=== PATIENT | female | born 1960 | race Caucasian/White ===

== ENCOUNTER → 2020-10-30 | Outpatient (CLI) | payer OTHER | LOC: WCC 08:30 | DX: S82.862D Displaced Maisonneuve's fracture of left leg, subsequent encounter for closed fracture with routine healing (principal); L03.115 Cellulitis of right lower limb; L98.8 Other specified disorders of the skin and subcutaneous tissue; I10 Essential (primary) hypertension ==

== ENCOUNTER → 2020-11-14 | Outpatient (CLI) | payer OTHER | LOC: WCC 08:09 | PROC: 0JBP0ZZ Excision of Left Lower Leg Subcutaneous Tissue and Fascia, Open Approach (ICD-10-PCS; principal; 2020-11-14) | PROC: 0JBN0ZZ Excision of Right Lower Leg Subcutaneous Tissue and Fascia, Open Approach (ICD-10-PCS; 2020-11-14) | DX: L03.115 Cellulitis of right lower limb (principal); S80.862D Insect bite (nonvenomous), left lower leg, subsequent encounter; L98.8 Other specified disorders of the skin and subcutaneous tissue; I10 Essential (primary) hypertension; Z88.5 Allergy status to narcotic agent; Z79.899 Other long term (current) drug therapy; X58.XXXD Exposure to other specified factors, subsequent encounter | CPT/HCPCS: 87070; 87205 ==

== ENCOUNTER → 2020-11-20 | Outpatient (CLI) | payer OTHER | LOC: WCC 08:00 | PROC: 0JBP0ZZ Excision of Left Lower Leg Subcutaneous Tissue and Fascia, Open Approach (ICD-10-PCS; principal; 2020-11-20) | DX: S81.852A Open bite, left lower leg, initial encounter (principal); S81.851A Open bite, right lower leg, initial encounter; L03.115 Cellulitis of right lower limb; L03.116 Cellulitis of left lower limb; I96 Gangrene, not elsewhere classified; I10 Essential (primary) hypertension; L02.91 Cutaneous abscess, unspecified; I49.9 Cardiac arrhythmia, unspecified; M10.9 Gout, unspecified; Z79.2 Long term (current) use of antibiotics; Z79.899 Other long term (current) drug therapy; Z88.5 Allergy status to narcotic agent; W57.XXXA Bitten or stung by nonvenomous insect and other nonvenomous arthropods, initial encounter; Y92.89 Other specified places as the place of occurrence of the external cause | CPT/HCPCS: J0696 ==

== ENCOUNTER → 2020-11-27 | Outpatient (CLI) | payer OTHER | LOC: WCC 08:05 | PROC: 0KBT0ZZ Excision of Left Lower Leg Muscle, Open Approach (ICD-10-PCS; principal; 2020-11-27) | PROC: 0KBS0ZZ Excision of Right Lower Leg Muscle, Open Approach (ICD-10-PCS; 2020-11-27) | DX: S81.852A Open bite, left lower leg, initial encounter (principal); S81.851A Open bite, right lower leg, initial encounter; L03.116 Cellulitis of left lower limb; L03.115 Cellulitis of right lower limb; I96 Gangrene, not elsewhere classified; L02.416 Cutaneous abscess of left lower limb; I10 Essential (primary) hypertension; I49.9 Cardiac arrhythmia, unspecified; M10.9 Gout, unspecified; I83.012 Varicose veins of right lower extremity with ulcer of calf; I83.022 Varicose veins of left lower extremity with ulcer of calf; L97.219 Non-pressure chronic ulcer of right calf with unspecified severity; L97.229 Non-pressure chronic ulcer of left calf with unspecified severity; Z88.5 Allergy status to narcotic agent; Z79.2 Long term (current) use of antibiotics; Z79.899 Other long term (current) drug therapy; Z68.34 Body mass index [BMI] 34.0-34.9, adult; W57.XXXA Bitten or stung by nonvenomous insect and other nonvenomous arthropods, initial encounter | CPT/HCPCS: 87070; J0696 ==

== ENCOUNTER → 2020-12-04 | Outpatient (CLI) | payer OTHER | LOC: WCC 08:00 | PROC: 0KBT0ZZ Excision of Left Lower Leg Muscle, Open Approach (ICD-10-PCS; principal; 2020-12-04) | PROC: 0KBS0ZZ Excision of Right Lower Leg Muscle, Open Approach (ICD-10-PCS; 2020-12-04) | DX: S81.852A Open bite, left lower leg, initial encounter (principal); S81.851A Open bite, right lower leg, initial encounter; L03.115 Cellulitis of right lower limb; L03.116 Cellulitis of left lower limb; L02.91 Cutaneous abscess, unspecified; I96 Gangrene, not elsewhere classified; I10 Essential (primary) hypertension; I49.9 Cardiac arrhythmia, unspecified; M10.9 Gout, unspecified; Z79.2 Long term (current) use of antibiotics; Z79.899 Other long term (current) drug therapy; Z88.5 Allergy status to narcotic agent; W57.XXXA Bitten or stung by nonvenomous insect and other nonvenomous arthropods, initial encounter ==

== ENCOUNTER → 2020-12-06 | Outpatient (CLI) | payer OTHER | LOC: WCC 10:57 | DX: S81.852A Open bite, left lower leg, initial encounter (principal); W57.XXXA Bitten or stung by nonvenomous insect and other nonvenomous arthropods, initial encounter ==

== ENCOUNTER → 2020-12-11 | Outpatient (CLI) | payer OTHER | LOC: WCC 10:30 | DX: L03.115 Cellulitis of right lower limb (principal); L03.116 Cellulitis of left lower limb; L02.91 Cutaneous abscess, unspecified; L98.8 Other specified disorders of the skin and subcutaneous tissue; S80.862D Insect bite (nonvenomous), left lower leg, subsequent encounter; I10 Essential (primary) hypertension | CPT/HCPCS: 97597 ==

== ENCOUNTER → 2020-12-18 | Outpatient (CLI) | payer OTHER | LOC: WCC 08:00 | PROC: 0JBP0ZZ Excision of Left Lower Leg Subcutaneous Tissue and Fascia, Open Approach (ICD-10-PCS; principal; 2020-12-18) | DX: S80.862A Insect bite (nonvenomous), left lower leg, initial encounter (principal); I96 Gangrene, not elsewhere classified; T81.89XA Other complications of procedures, not elsewhere classified, initial encounter; L03.116 Cellulitis of left lower limb; L02.91 Cutaneous abscess, unspecified; L98.8 Other specified disorders of the skin and subcutaneous tissue; I10 Essential (primary) hypertension; I49.9 Cardiac arrhythmia, unspecified; M10.9 Gout, unspecified; Z88.5 Allergy status to narcotic agent; Z79.2 Long term (current) use of antibiotics; Z79.899 Other long term (current) drug therapy; W57.XXXA Bitten or stung by nonvenomous insect and other nonvenomous arthropods, initial encounter; Y83.8 Other surgical procedures as the cause of abnormal reaction of the patient, or of later complication, without mention of misadventure at the time of the procedure | CPT/HCPCS: 97597 ==

== ENCOUNTER → 2020-12-25 | Outpatient (CLI) | payer OTHER | LOC: WCC 08:02 | PROC: 0JBP0ZZ Excision of Left Lower Leg Subcutaneous Tissue and Fascia, Open Approach (ICD-10-PCS; principal; 2020-12-25) | DX: S80.862A Insect bite (nonvenomous), left lower leg, initial encounter (principal); I96 Gangrene, not elsewhere classified; L03.116 Cellulitis of left lower limb; L02.91 Cutaneous abscess, unspecified; L98.8 Other specified disorders of the skin and subcutaneous tissue; I10 Essential (primary) hypertension; Y92.89 Other specified places as the place of occurrence of the external cause; M10.9 Gout, unspecified; Z79.2 Long term (current) use of antibiotics; Z79.899 Other long term (current) drug therapy; Z88.5 Allergy status to narcotic agent; W57.XXXA Bitten or stung by nonvenomous insect and other nonvenomous arthropods, initial encounter; I49.9 Cardiac arrhythmia, unspecified ==

== ENCOUNTER → 2021-01-01 | Outpatient (CLI) | payer SELFPAY | LOC: WCC 07:55 | PROC: 0JBM0ZZ Excision of Left Upper Leg Subcutaneous Tissue and Fascia, Open Approach (ICD-10-PCS; principal; 2021-01-01) | DX: S80.862A Insect bite (nonvenomous), left lower leg, initial encounter (principal); I96 Gangrene, not elsewhere classified; I10 Essential (primary) hypertension; L98.8 Other specified disorders of the skin and subcutaneous tissue; I49.9 Cardiac arrhythmia, unspecified; M10.9 Gout, unspecified; Z79.2 Long term (current) use of antibiotics; Z79.899 Other long term (current) drug therapy; Z88.5 Allergy status to narcotic agent; W57.XXXA Bitten or stung by nonvenomous insect and other nonvenomous arthropods, initial encounter ==

== ENCOUNTER → 2021-01-08 | Outpatient (CLI) | payer OTHER | LOC: WCC 08:00 | PROC: 0KBT0ZZ Excision of Left Lower Leg Muscle, Open Approach (ICD-10-PCS; principal; 2021-01-08) | DX: S80.862A Insect bite (nonvenomous), left lower leg, initial encounter (principal); I96 Gangrene, not elsewhere classified; I83.028 Varicose veins of left lower extremity with ulcer other part of lower leg; L97.822 Non-pressure chronic ulcer of other part of left lower leg with fat layer exposed; L98.8 Other specified disorders of the skin and subcutaneous tissue; I10 Essential (primary) hypertension; I49.9 Cardiac arrhythmia, unspecified; M10.9 Gout, unspecified; Z88.5 Allergy status to narcotic agent; Z79.2 Long term (current) use of antibiotics; Z79.899 Other long term (current) drug therapy; W57.XXXA Bitten or stung by nonvenomous insect and other nonvenomous arthropods, initial encounter ==

== ENCOUNTER → 2021-01-14 | Outpatient (CLI) | payer OTHER | LOC: WCC 07:50 | PROC: 2W1MX6Z Compression of Left Lower Extremity using Pressure Dressing (ICD-10-PCS; principal; 2021-01-14) | PROC: 0KBT0ZZ Excision of Left Lower Leg Muscle, Open Approach (ICD-10-PCS; principal; 2021-01-14) | DX: S80.862A Insect bite (nonvenomous), left lower leg, initial encounter (principal); I96 Gangrene, not elsewhere classified; L98.8 Other specified disorders of the skin and subcutaneous tissue; I10 Essential (primary) hypertension; I49.9 Cardiac arrhythmia, unspecified; M10.9 Gout, unspecified; Z88.5 Allergy status to narcotic agent; Z79.2 Long term (current) use of antibiotics; Z79.899 Other long term (current) drug therapy; W57.XXXA Bitten or stung by nonvenomous insect and other nonvenomous arthropods, initial encounter ==

== ENCOUNTER → 2021-01-22 | Outpatient (CLI) | payer OTHER | LOC: WCC 08:00 | DX: S80.862D Insect bite (nonvenomous), left lower leg, subsequent encounter (principal); I10 Essential (primary) hypertension; L98.8 Other specified disorders of the skin and subcutaneous tissue; X58.XXXD Exposure to other specified factors, subsequent encounter | CPT/HCPCS: 97597 ==

== ENCOUNTER → 2021-01-29 | Outpatient (CLI) | payer OTHER | LOC: WCC 08:00 | PROC: 0JBP0ZZ Excision of Left Lower Leg Subcutaneous Tissue and Fascia, Open Approach (ICD-10-PCS; principal; 2021-01-29) | PROC: 2W1MX6Z Compression of Left Lower Extremity using Pressure Dressing (ICD-10-PCS; 2021-01-29) | DX: I83.018 Varicose veins of right lower extremity with ulcer other part of lower leg (principal); I83.028 Varicose veins of left lower extremity with ulcer other part of lower leg; L97.822 Non-pressure chronic ulcer of other part of left lower leg with fat layer exposed; L97.819 Non-pressure chronic ulcer of other part of right lower leg with unspecified severity; I96 Gangrene, not elsewhere classified; L98.8 Other specified disorders of the skin and subcutaneous tissue; I10 Essential (primary) hypertension; S80.862D Insect bite (nonvenomous), left lower leg, subsequent encounter; I49.9 Cardiac arrhythmia, unspecified; M10.9 Gout, unspecified; Z79.2 Long term (current) use of antibiotics; Z79.899 Other long term (current) drug therapy; W57.XXXD Bitten or stung by nonvenomous insect and other nonvenomous arthropods, subsequent encounter; Z88.5 Allergy status to narcotic agent ==

== ENCOUNTER → 2021-02-03 | Outpatient (CLI) | payer OTHER | LOC: WCC 15:29 | PROC: 0JBM0ZZ Excision of Left Upper Leg Subcutaneous Tissue and Fascia, Open Approach (ICD-10-PCS; principal; 2021-02-03) | DX: S80.862A Insect bite (nonvenomous), left lower leg, initial encounter (principal); L98.8 Other specified disorders of the skin and subcutaneous tissue; I83.893 Varicose veins of bilateral lower extremities with other complications; I83.018 Varicose veins of right lower extremity with ulcer other part of lower leg; I83.028 Varicose veins of left lower extremity with ulcer other part of lower leg; L97.819 Non-pressure chronic ulcer of other part of right lower leg with unspecified severity; L97.822 Non-pressure chronic ulcer of other part of left lower leg with fat layer exposed; L02.416 Cutaneous abscess of left lower limb; I96 Gangrene, not elsewhere classified; I10 Essential (primary) hypertension; I49.9 Cardiac arrhythmia, unspecified; M10.9 Gout, unspecified; Z79.2 Long term (current) use of antibiotics; Z79.899 Other long term (current) drug therapy; Z88.5 Allergy status to narcotic agent; W57.XXXA Bitten or stung by nonvenomous insect and other nonvenomous arthropods, initial encounter; Y92.89 Other specified places as the place of occurrence of the external cause ==

== ENCOUNTER → 2021-02-06 | Outpatient (CLI) | payer OTHER | LOC: WCC 08:00 | DX: S81.802A Unspecified open wound, left lower leg, initial encounter (principal); X58.XXXA Exposure to other specified factors, initial encounter | CPT/HCPCS: G0463 ==

== ENCOUNTER → 2021-02-12 | Outpatient (CLI) | payer OTHER | LOC: WCC 08:00 | DX: S80.862D Insect bite (nonvenomous), left lower leg, subsequent encounter (principal); L98.8 Other specified disorders of the skin and subcutaneous tissue; I10 Essential (primary) hypertension; I83.893 Varicose veins of bilateral lower extremities with other complications; I87.313 Chronic venous hypertension (idiopathic) with ulcer of bilateral lower extremity; L02.416 Cutaneous abscess of left lower limb | CPT/HCPCS: 87070; 87205; J0696 ==

== ENCOUNTER → 2021-02-14 | Outpatient (CLI) | payer OTHER | LOC: WCC 08:00 | DX: L98.8 Other specified disorders of the skin and subcutaneous tissue (principal); S80.862D Insect bite (nonvenomous), left lower leg, subsequent encounter; I10 Essential (primary) hypertension; I83.893 Varicose veins of bilateral lower extremities with other complications; L02.416 Cutaneous abscess of left lower limb | CPT/HCPCS: 87070; 87205; J0696 ==

== ENCOUNTER → 2021-02-19 | Outpatient (CLI) | payer OTHER | LOC: WCC 08:00 | DX: I83.893 Varicose veins of bilateral lower extremities with other complications (principal); L97.222 Non-pressure chronic ulcer of left calf with fat layer exposed; L02.416 Cutaneous abscess of left lower limb; S80.862D Insect bite (nonvenomous), left lower leg, subsequent encounter; I10 Essential (primary) hypertension; Z88.5 Allergy status to narcotic agent; Z88.8 Allergy status to other drugs, medicaments and biological substances; Z79.2 Long term (current) use of antibiotics | CPT/HCPCS: 36415; 80053; 85025; 85652; 86140 ==

== ENCOUNTER → 2021-02-19 | Outpatient (CLI) | payer OTHER ==
[2021-02-19 10:20] LABS: HEMOGLOBIN 13.4 gm/dl (12.3-15.3); RED BLOOD COUNT 4.44 M/UL (4.00-5.10); WHITE BLOOD COUNT 7.9 K/UL (4.5-11.0)
== END ==
LOC: LAB 09:26
PROVIDERS: Nurse Practitioner Family
DX: L02.416 Cutaneous abscess of left lower limb (principal)
CPT/HCPCS: 36415; 80053; 85025; 85652; 86140

== ENCOUNTER → 2021-02-26 | Outpatient (CLI) | payer OTHER | LOC: WCC 08:00 | DX: I87.313 Chronic venous hypertension (idiopathic) with ulcer of bilateral lower extremity (principal); L97.222 Non-pressure chronic ulcer of left calf with fat layer exposed; I87.2 Venous insufficiency (chronic) (peripheral); L98.8 Other specified disorders of the skin and subcutaneous tissue; S80.862D Insect bite (nonvenomous), left lower leg, subsequent encounter; I10 Essential (primary) hypertension; L02.416 Cutaneous abscess of left lower limb | CPT/HCPCS: 87070; 87205; J0696 ==

== ENCOUNTER → 2021-02-27 | Outpatient (CLI) | payer OTHER | LOC: OPSV 07:00 | DX: L02.416 Cutaneous abscess of left lower limb (principal) | CPT/HCPCS: 96372; J0696 ==

== ENCOUNTER → 2021-02-28 | Outpatient (CLI) | payer OTHER ==
[~2021-02-28] VITALS: Ht 167.6 cm; Wt 96.6 kg
== END ==
LOC: OPSV 07:00
DX: L02.416 Cutaneous abscess of left lower limb (principal); Z88.5 Allergy status to narcotic agent
CPT/HCPCS: 96372; J0696

== ENCOUNTER → 2021-03-01 | Outpatient (CLI) | payer OTHER ==
[~2021-03-01] VITALS: Ht 167.6 cm; Wt 96.6 kg
== END ==
LOC: OPSV 07:34
DX: L02.416 Cutaneous abscess of left lower limb (principal)
CPT/HCPCS: 96372; J0696

== ENCOUNTER → 2021-03-02 | Outpatient (CLI) | payer OTHER ==
[~2021-03-02] VITALS: Ht 167.6 cm; Wt 96.6 kg
== END ==
LOC: OPSV 07:28
DX: L02.416 Cutaneous abscess of left lower limb (principal)
CPT/HCPCS: 96372; J0696

== ENCOUNTER → 2021-03-03 | Outpatient (CLI) | payer OTHER ==
[~2021-03-03] VITALS: Ht 167.6 cm; Wt 96.6 kg
== END ==
LOC: OPSV 06:59
DX: L02.416 Cutaneous abscess of left lower limb (principal)
CPT/HCPCS: 96372; J0696

== ENCOUNTER → 2021-03-04 | Outpatient (CLI) | payer OTHER ==
[~2021-03-04] VITALS: Ht 167.6 cm; Wt 96.6 kg
== END ==
LOC: OPSV 07:00
DX: L02.416 Cutaneous abscess of left lower limb (principal)
CPT/HCPCS: 96372; J0696

== ENCOUNTER → 2021-03-05 | Outpatient (CLI) | payer OTHER | LOC: WCC 08:00 | DX: S80.862D Insect bite (nonvenomous), left lower leg, subsequent encounter (principal); L02.416 Cutaneous abscess of left lower limb; L97.222 Non-pressure chronic ulcer of left calf with fat layer exposed; I83.893 Varicose veins of bilateral lower extremities with other complications; L98.8 Other specified disorders of the skin and subcutaneous tissue; I10 Essential (primary) hypertension | CPT/HCPCS: J0696 ==

== ENCOUNTER → 2021-03-06 | Outpatient (CLI) | payer OTHER ==
[~2021-03-06] VITALS: Ht 167.6 cm; Wt 96.6 kg
== END ==
LOC: OPSV 07:00
DX: L02.416 Cutaneous abscess of left lower limb (principal); L97.222 Non-pressure chronic ulcer of left calf with fat layer exposed; S80.862D Insect bite (nonvenomous), left lower leg, subsequent encounter; I10 Essential (primary) hypertension; I83.893 Varicose veins of bilateral lower extremities with other complications; I87.313 Chronic venous hypertension (idiopathic) with ulcer of bilateral lower extremity
CPT/HCPCS: 96372; J0696

== ENCOUNTER → 2021-03-07 | Outpatient (CLI) | payer OTHER ==
[~2021-03-07] VITALS: Ht 167.6 cm; Wt 96.6 kg
== END ==
LOC: OPSV 07:00
DX: L02.416 Cutaneous abscess of left lower limb (principal)
CPT/HCPCS: 96372; J0696

== ENCOUNTER → 2021-03-12 | Outpatient (CLI) | payer OTHER | LOC: WCC 08:00 | DX: L97.222 Non-pressure chronic ulcer of left calf with fat layer exposed (principal); L98.8 Other specified disorders of the skin and subcutaneous tissue; S80.862D Insect bite (nonvenomous), left lower leg, subsequent encounter; I10 Essential (primary) hypertension; I83.893 Varicose veins of bilateral lower extremities with other complications; I87.313 Chronic venous hypertension (idiopathic) with ulcer of bilateral lower extremity; L02.416 Cutaneous abscess of left lower limb | CPT/HCPCS: 97597 ==

== ENCOUNTER → 2021-03-26 | Outpatient (CLI) | payer OTHER | LOC: WCC 08:00 | DX: I83.93 Asymptomatic varicose veins of bilateral lower extremities (principal); I10 Essential (primary) hypertension | CPT/HCPCS: G0463 ==

== ENCOUNTER → 2022-02-04 | Outpatient (CLI) | payer OTHER | LOC: WCC 07:35 | DX: S81.802A Unspecified open wound, left lower leg, initial encounter (principal); I87.2 Venous insufficiency (chronic) (peripheral); I10 Essential (primary) hypertension; L08.9 Local infection of the skin and subcutaneous tissue, unspecified; L03.116 Cellulitis of left lower limb; Z88.5 Allergy status to narcotic agent; Z79.899 Other long term (current) drug therapy ==

== ENCOUNTER → 2022-02-11 | Outpatient (CLI) | payer OTHER | END | disposition home or self-care (01) | LOC: WCC 07:14 | DX: S81.802A Unspecified open wound, left lower leg, initial encounter (principal); I87.2 Venous insufficiency (chronic) (peripheral); I10 Essential (primary) hypertension; L08.9 Local infection of the skin and subcutaneous tissue, unspecified; L03.116 Cellulitis of left lower limb; Z79.899 Other long term (current) drug therapy; X58.XXXA Exposure to other specified factors, initial encounter | CPT/HCPCS: 87070; 87205 ==

== ENCOUNTER → 2022-02-13 | Outpatient (CLI) | payer OTHER | END | disposition home or self-care (01) | LOC: WCC 06:48 | PROC: 2W1MX6Z Compression of Left Lower Extremity using Pressure Dressing (ICD-10-PCS; principal; 2022-02-13) | DX: S81.802A Unspecified open wound, left lower leg, initial encounter (principal); I49.9 Cardiac arrhythmia, unspecified; I10 Essential (primary) hypertension; M10.9 Gout, unspecified; X58.XXXA Exposure to other specified factors, initial encounter ==

== ENCOUNTER → 2022-02-18 | Outpatient (CLI) | payer OTHER | END | disposition home or self-care (01) | LOC: WCC 07:24 | DX: S81.802A Unspecified open wound, left lower leg, initial encounter (principal); I87.2 Venous insufficiency (chronic) (peripheral); I10 Essential (primary) hypertension; I87.312 Chronic venous hypertension (idiopathic) with ulcer of left lower extremity; M79.662 Pain in left lower leg; Z79.899 Other long term (current) drug therapy; X58.XXXA Exposure to other specified factors, initial encounter ==

== ENCOUNTER → 2022-02-25 | Outpatient (CLI) | payer OTHER | LOC: WCC 07:00 | DX: I87.312 Chronic venous hypertension (idiopathic) with ulcer of left lower extremity (principal); I87.2 Venous insufficiency (chronic) (peripheral); L97.229 Non-pressure chronic ulcer of left calf with unspecified severity; I10 Essential (primary) hypertension; M79.662 Pain in left lower leg; Z88.5 Allergy status to narcotic agent ==

== ENCOUNTER → 2022-03-04 | Outpatient (CLI) | payer OTHER | LOC: WCC 07:28 | DX: S81.802A Unspecified open wound, left lower leg, initial encounter (principal); I87.2 Venous insufficiency (chronic) (peripheral); I10 Essential (primary) hypertension; I87.312 Chronic venous hypertension (idiopathic) with ulcer of left lower extremity; M79.662 Pain in left lower leg; X58.XXXA Exposure to other specified factors, initial encounter; Z88.5 Allergy status to narcotic agent ==

== ENCOUNTER → 2022-03-11 | Outpatient (CLI) | payer OTHER | END | disposition home or self-care (01) | LOC: WCC 06:40 | DX: S81.802A Unspecified open wound, left lower leg, initial encounter (principal); I87.2 Venous insufficiency (chronic) (peripheral); I10 Essential (primary) hypertension; I87.312 Chronic venous hypertension (idiopathic) with ulcer of left lower extremity; M79.662 Pain in left lower leg; X58.XXXA Exposure to other specified factors, initial encounter; Z79.899 Other long term (current) drug therapy ==

== ENCOUNTER → 2022-03-18 | Outpatient (CLI) | payer OTHER | LOC: WCC 06:56 | DX: I87.2 Venous insufficiency (chronic) (peripheral) (principal); I10 Essential (primary) hypertension; I87.312 Chronic venous hypertension (idiopathic) with ulcer of left lower extremity; M79.662 Pain in left lower leg | CPT/HCPCS: G0463 ==